=== PATIENT | female | born 1995 | race Caucasian/White ===

== ENCOUNTER 2018-04-23 22:45 | Emergency (ER) | payer SELFPAY ==
[2018-04-23] MEDS ORDERED: NS 0.9% 1000 ML* 1,000 ML IV ONE (23:39)
[2018-04-23] MEDS ORDERED: Acetaminophen TAB* 325 MG PO ONE (23:39)
[2018-04-24 00:02] LABS: ABS Basophils 0 10^3/ul (0-0.2); ABS Eosinophils 0 10^3/ul (0-0.6); ABS Lymphocytes 0.5 10^3/ul (1.0-4.8); ABS Monocytes 0.6 10^3/ul (0-0.8); ABS Neutrophils 4.7 10^3/ul (1.5-7.7); ABS Nucleated RBC 0 10^3/ul; Eosinophil % 0.1 %; Hematocrit 39 % (35-47); Hemoglobin 13.5 g/dl (12.0-16.0); Lymphocyte % 8.8 %; Mean Corpuscular HGB Conc 35 g/dl (31-36); Mean Corpuscular Hemoglobin 30 pg (27-31); Mean Corpuscular Volume 88 fL (80-97); Mean Platelet Volume 7.3 fL (7.4-10.4); Nucleated Red Blood Cells % 0.1; Platelet Count 178 10^3/ul (150-450); Red Blood Count 4.44 10^6/ul (4.00-5.40); Red Cell Distribution Width 12 % (10.5-15); White Blood Count 5.9 10^3/ul (3.5-10.8)
[2018-04-24] MEDS ORDERED: Lidocaine 2% VISCOUS* 15 ML UDC PO ONE (00:06)
[2018-04-24 00:20] LABS: EGFR Non-African American 100.6 (>60)
[2018-04-24] MEDS ORDERED: Piperacillin/Tazobac ADVAN(*) 3.375 GM in NS 0.9% 100 ML* 100 ML IVPB ONE (01:40)
[2018-04-24] MEDS ORDERED: Ibuprofen TAB* 600 MG PO ONE (01:41)
[2018-04-24] MEDS ORDERED: Iohexol 300* (CONTRAST) 10 ML SDV IV ONE (01:52)
[2018-04-24] MEDS ORDERED: NS 0.9% 1000 ML* 1,000 ML IV ONE ×2 (01:58→03:06)
[2018-04-24 03:10] LABS: Urine Appearance Clear; Urine Blood Negative (Negative); Urine Color Yellow; Urine Ketones Negative (Negative); Urine Protein Negative (Negative); Urine Urobilinogen Negative (Negative)
--- NOTE | 2018-04-24 03:13 | ED ---
Influenza-Like Illness - HPI Summary HPI Summary: Patient complains of fever up to 102.5, sore throat rated at 8/10, chills, bodyaches, diffuse AKHTAR, productive cough 2 days. Fever intermittently controlled with ibuprofen. Last ibuprofen 400 mg at 1630 today. Denies neck stiffness, ear pain, rash, CP, SOB, N/V/D, abdominal pain, change in urine, change in BM, vaginal symptoms. Medical history is anxiety and depression. - History of Current Complaint Chief Complaint: EDFever Time Seen by Provider: 04/23/18 23:34 Hx Obtained From: Patient Onset/Duration: Gradual Onset Severity: Moderate Associated Signs & Symptoms: Fever, Myalgia, Cough, Sore Throat, Headache - Allergy/Home Medications Allergies/Adverse Reactions: Allergies Allergy/AdvReac Type Severity Reaction Status Date / Time No Known Allergies Allergy Verified 04/23/18 22:55 Home Medications: Home Medications buPROPion HCl [Wellbutrin Sr] 150 mg PO BID 04/23/18 [History Confirmed 04/23/18 ] hydrOXYzine HCl [Hydroxyzine HCl] 10 mg PO DAILY PRN 04/23/18 [History Confirmed 04/23/18] PMH/Surg Hx/FS Hx/Imm Hx Endocrine/Hematology History: Denies: Hx Anticoagulant Therapy Cardiovascular History: Denies: Hx Cardiac Arrest History: Denies: Hx Dialysis EENT History: Denies: Hx Deafness Neurological History: Denies: Hx CVA Psychiatric History: Denies: Hx Autism Infectious Disease History: No Infectious Disease History: Denies: Traveled Outside the [place] in Last 30 Days - Family History Known Family History: Positive: None - Social History Occupation: Student Alcohol Use: None Substance Use Type: Reports: None Smoking Status (MU): Never Smoked Tobacco Review of Systems Positive: Fever, Chills Eyes: Negative Positive: Sore Throat Cardiovascular: Negative Positive: Cough Gastrointestinal: Negative Genitourinary: Negative Positive: Myalgia Skin: Negative Positive: Headache Psychological: Normal All Other Systems Reviewed And Are Negative: Yes Physical Exam Triage Information Reviewed: Yes Vital Signs On Initial Exam: Initial Vitals Temp Pulse Resp BP Pulse Ox 104.1 F 134 18 124/71 97 04/23/18 22:51 04/23/18 22:51 04/23/18 22:51 04/23/18 22:51 04/23/18 22:51 Vital Signs Reviewed: Yes Appearance: Positive: Well-Appearing Skin: Positive: Warm Head/Face: Positive: Normal Head/Face Inspection Eyes: Positive: Normal ENT: Positive: Pharyngeal erythema, TMs normal, Uvula midline. Negative: Tonsillar swelling, Tonsillar exudate, Trismus, Muffled voice, Hoarse voice Neck: Positive: Supple Respiratory/Lung Sounds: Positive: Clear to Auscultation Cardiovascular: Positive: Normal Abdomen Description: Positive: Nontender Musculoskeletal: Positive: Normal Neurological: Positive: Normal Psychiatric: Positive: Normal AVPU Assessment: Alert - [place] Coma Scale Best Eye Response: 4 - Spontaneous Best Motor Response: 6 - Obeys Commands Best Verbal Response: 5 - Oriented Coma Scale Total: 15 Diagnostics - Vital Signs Vital Signs Temp Pulse Resp BP Pulse Ox 04/24/18 02:00 125 22 99 04/24/18 01:59 100.3 F 04/24/18 01:44 120 23 130/75 98 04/24/18 01:14 118 19 127/78 99 04/24/18 01:00 120 24 98 04/24/18 00:44 122 23 127/81 99 04/24/18 00:06 126 20 100 04/24/18 00:00 260 18 100 04/23/18 23:42 131 20 100 04/23/18 23:40 124 17 134/87 99 04/23/18 22:51 104.1 F 134 18 124/71 97 - Laboratory Lab Results: Lab Results 04/23/18 04/23/18 04/23/18 Range/Units 23:51 23:51 23:51 WBC 5.9 (3.5-10.8) 10^3/ul RBC 4.44 (4.00-5.40) 10^6/ul Hgb 13.5 (12.0-16.0) g/dl Hct 39 (35-47) % MCV 88 (80-97) fL MCH 30 (27-31) pg MCHC 35 (31-36) g/dl RDW 12 (10.5-15) % Plt Count 178 (150-450) 10^3/ul MPV 7.3 L (7.4-10.4) fL Neut % (Auto) 79.4 % Lymph % (Auto) 8.8 % [place] % (Auto) 11.0 % Eos % (Auto) 0.1 % Baso % (Auto) 0.7 % Absolute Neuts (auto) 4.7 (1.5-7.7) 10^3/ul Absolute Lymphs (auto) 0.5 L (1.0-4.8) 10^3/ul Absolute Monos (auto) 0.6 (0-0.8) 10^3/ul Absolute Eos (auto) 0 (0-0.6) 10^3/ul Absolute Basos (auto) 0 (0-0.2) 10^3/ul Absolute Nucleated RBC 0 10^3/ul Nucleated RBC % 0.1 Sodium 135 (135-145) mmol/L Potassium 3.4 L (3.5-5.0) mmol/L Chloride 105 (101-111) mmol/L Carbon Dioxide 24 (22-32) mmol/L Anion Gap 6 (2-11) mmol/L BUN 12 (6-24) mg/dL Creatinine 0.73 (0.51-0.95) mg/dL Est GFR ( Amer) 121.8 (>60) Est GFR (Non-Af Amer) 100.6 (>60) BUN/Creatinine Ratio 16.4 (8-20) Glucose 89 (70-100) mg/dL Lactic Acid 1.2 (0.5-2.0) mmol/L Calcium 8.8 (8.6-10.3) mg/dL Total Bilirubin 0.60 (0.2-1.0) mg/dL AST 17 (13-39) U/L ALT 11 (7-52) U/L Alkaline Phosphatase 52 (34-104) U/L C-Reactive Protein 79.26 H (<8.01) mg/L Total Protein 6.6 (6.4-8.9) g/dL Albumin 4.2 (3.2-5.2) g/dL Globulin 2.4 (2-4) g/dL Albumin/Globulin Ratio 1.8 (1-3) Beta HCG, Quant < 0.60 mIU/mL Monoscreen Negative (Negative) Influenza A (Rapid) (Negative) Influenza B (Rapid) (Negative) Group A Strep Rapid (Negative) 04/24/18 04/24/18 Range/Units 00:15 00:20 WBC (3.5-10.8) 10^3/ul RBC (4.00-5.40) 10^6/ul Hgb (12.0-16.0) g/dl Hct (35-47) % MCV (80-97) fL MCH (27-31) pg MCHC (31-36) g/dl RDW (10.5-15) % Plt Count (150-450) 10^3/ul MPV (7.4-10.4) fL Neut % (Auto) % Lymph % (Auto) % [place] % (Auto) % Eos % (Auto) % Baso % (Auto) % Absolute Neuts (auto) (1.5-7.7) 10^3/ul Absolute Lymphs (auto) (1.0-4.8) 10^3/ul Absolute Monos (auto) (0-0.8) 10^3/ul Absolute Eos (auto) (0-0.6) 10^3/ul Absolute Basos (auto) (0-0.2) 10^3/ul Absolute Nucleated RBC 10^3/ul Nucleated RBC % Sodium (135-145) mmol/L Potassium (3.5-5.0) mmol/L Chloride (101-111) mmol/L Carbon Dioxide (22-32) mmol/L Anion Gap (2-11) mmol/L BUN (6-24) mg/dL Creatinine (0.51-0.95) mg/dL Est GFR ( Amer) (>60) Est GFR (Non-Af Amer) (>60) BUN/Creatinine Ratio (8-20) Glucose (70-100) mg/dL Lactic Acid (0.5-2.0) mmol/L Calcium (8.6-10.3) mg/dL Total Bilirubin (0.2-1.0) mg/dL AST (13-39) U/L ALT (7-52) U/L Alkaline Phosphatase (34-104) U/L C-Reactive Protein (<8.01) mg/L Total Protein (6.4-8.9) g/dL Albumin (3.2-5.2) g/dL Globulin (2-4) g/dL Albumin/Globulin Ratio (1-3) Beta HCG, Quant mIU/mL Monoscreen (Negative) Influenza A (Rapid) Negative (Negative) Influenza B (Rapid) Negative (Negative) Group A Strep Rapid Negative (Negative) Result Diagrams: 04/23/18 23:51 04/23/18 23:51 Lab Statement: Any lab studies that have been ordered have been reviewed, and results considered in the medical decision making process. Flu Symptom Course/Dx - Course Course Of Treatment: Patient complains of fever up to 102.5, sore throat rated at 8/10, chills, bodyaches, diffuse AKHTAR, productive cough 2 days. Fever intermittently controlled with ibuprofen. Last ibuprofen 400 mg at 1630 today. Denies neck stiffness, ear pain, rash, CP, SOB, N/V/D, abdominal pain, change in urine, change in BM, vaginal symptoms. Medical history is anxiety and depression. Physical exam: Pharyngeal erythema. Physical exam otherwise unremarkable. Patient tachycardic around 125. Temperature 100.4. WBC within normal limits. Chest x-ray concerning for pneumonia and possible abscess. CT chest obtained to rule out chest abscess, positive for pneumonia. Patient remains tachycardic after 2 L normal saline. Temperature 100.1 after menstruation of Tylenol and ibuprofen. Discussed patient with Dr. Bolden who recommended discharge home with [facility]. - Diagnoses Provider Diagnoses: Pneumonia Discharge - Sign-Out/Discharge Documenting (check all that apply): Patient Departure - Discharge Plan Condition: Stable Disposition: HOME Patient Education Materials: Bacterial Pneumonia (ED) Referrals: No Primary Care Phys,NOPCP [Primary Care Provider] - [facility] [Outside] Additional Instructions: Take antibiotics as directed. Follow-up with primary care. Return to the ED for any new or worsening symptoms. - Billing Disposition and Condition Condition: STABLE Disposition: Home
[2018-04-24] MEDS ORDERED: Ibuprofen TAB* 200 MG PO ONE (03:16)
[2018-04-24 03:37] VITALS: BP 124/66
== END 2018-04-24 03:36 | disposition home or self-care (01) ==
LOC: ED 22:45
DX: J18.9 Pneumonia, unspecified organism (principal); J02.9 Acute pharyngitis, unspecified; R50.9 Fever, unspecified; R05 Cough; R51 Headache
CPT/HCPCS: 36415; 71045; 71260; 80053; 81003; 83605; 84702; 85025; 86140; 86308; 87040; 87651; 96361; 96365; 99284; A9270-GY; J2543; Q9967